=== PATIENT | female | born 1980 | race Asian ===

== ENCOUNTER → 2016-07-31 | Outpatient (CLI) | payer OTHER ==
[~2016-07-31] MED LIST: PREN1TAB29
[2016-07-31 16:48] LABS: BASO % 0.3 %; BASO ABS # 0.02 K/uL (0-0.2); COMPLETE YES; EOS % 1.3 %; HEMATOCRIT 35.4 % (37-47); IG% 0.1 %; LYMPH % 23.6 %; LYMPH ABS # 1.64 K/uL (1.2-3.4); MEAN CELL VOLUME 94.7 fL (80-100); MEAN CORPUSCULAR HEMOGLOBIN 31.6 pg (25-34); MEAN CORPUSCULAR HGB CONC 33.3 g/dl (32-36); MONO % 6.9 %; NEUT % 67.8 %; PLATELET COUNT 250 K/uL (130-400); RED BLOOD COUNT 3.74 M/uL (4.2-5.4); WHITE BLOOD COUNT 6.95 K/uL (4.8-10.8)
== END | disposition home or self-care (01) ==
LOC: C.LAB1850 15:27
PROVIDERS: ATTEND Obstetrics & Gynecology
DX: O09.529 Supervision of elderly multigravida, unspecified trimester (principal); Z3A.00 Weeks of gestation of pregnancy not specified

== ENCOUNTER → 2016-07-31 | Outpatient (CLI) | payer OTHER ==
[2016-08-01 12:47] LABS: URINE APPEARANCE CLEAR (CLEAR); URINE BILIRUBIN NEG (NEG); URINE COLOR YELLOW; URINE EPITHELIAL CELL AUTO 20-30 /lpf (0-5); URINE NITRITE NEG (NEG); URINE SPECIFIC GRAVITY 1.015 (1.000-1.030); UROBILINOGEN NEG (NEG)
[2016-08-01 12:48] LABS: MANUAL MICROSCOPIC REQUIRED? NO; REVIEW REQ? NO
[2016-08-03 15:28] LABS: CHLAMYDIA TRACH RNA*** NOT DETECTED (NOT DETECTED); GC (NEIS GONORRHOEAE)RNA** NOT DETECTED (NOT DETECTED)
== END | disposition home or self-care (01) ==
LOC: C.LABSPEC 17:15
PROVIDERS: ATTEND Obstetrics & Gynecology
DX: O09.529 Supervision of elderly multigravida, unspecified trimester (principal); Z3A.00 Weeks of gestation of pregnancy not specified

== ENCOUNTER → 2016-09-02 | Outpatient (CLI) | payer OTHER ==
[2016-09-02 18:05] LABS: GTGD 50 Grams
== END | disposition home or self-care (01) ==
LOC: C.LAB1850 14:09
PROVIDERS: ATTEND Obstetrics & Gynecology
DX: O09.529 Supervision of elderly multigravida, unspecified trimester (principal); Z3A.00 Weeks of gestation of pregnancy not specified

== ENCOUNTER → 2016-11-26 | Outpatient (CLI) | payer OTHER ==
[2016-11-26 16:39] LABS: HEMATOCRIT 32.1 % (37-47)
[2016-11-26 18:20] LABS: GTGD 50 Grams
[2016-11-26 18:22] LABS: URINE APPEARANCE CLEAR (CLEAR); URINE BILIRUBIN NEG (NEG); URINE COLOR YELLOW; URINE NITRITE NEG (NEG); URINE SPECIFIC GRAVITY 1.015 (1.000-1.030); UROBILINOGEN NEG (NEG)
[2016-11-26 18:24] LABS: MANUAL MICROSCOPIC REQUIRED? NO; REVIEW REQ? NO
== END | disposition home or self-care (01) ==
LOC: C.LAB1850 15:12
PROVIDERS: ATTEND Obstetrics & Gynecology
DX: O09.523 Supervision of elderly multigravida, third trimester (principal); Z3A.00 Weeks of gestation of pregnancy not specified

== ENCOUNTER → 2016-12-17 | Outpatient (CLI) | payer OTHER | END | disposition home or self-care (01) | LOC: C.LAB1850 09:39 | PROVIDERS: ATTEND Obstetrics & Gynecology | DX: O28.9 Unspecified abnormal findings on antenatal screening of mother (principal) ==

== ENCOUNTER → 2017-01-24 | Outpatient (CLI) | payer OTHER | END | disposition home or self-care (01) | LOC: C.LABSPEC 15:42 | PROVIDERS: ATTEND Obstetrics & Gynecology | DX: O09.523 Supervision of elderly multigravida, third trimester (principal); Z3A.00 Weeks of gestation of pregnancy not specified ==

== ENCOUNTER 2017-02-04 01:08 | Inpatient (IN) | payer OTHER ==
[~2017-02-04] VITALS: Ht 157.5 cm; Wt 60.0 kg
[2017-02-04] MEDS ORDERED: LACTATED RINGER'S 1000ML 1,000 ML IV PRN (02:50)
[2017-02-04] MEDS ORDERED: LACTATED RINGER'S 1000ML 1,000 ML IV SCH ×2 (02:50→09:54)
[2017-02-04 03:17] LABS: HEMATOCRIT 32.3 % (37-47); MEAN CELL VOLUME 96.4 fL (80-100); MEAN CORPUSCULAR HEMOGLOBIN 33.4 pg (25-34); MEAN CORPUSCULAR HGB CONC 34.7 g/dl (32-36); MEAN PLATELET VOLUME 10.7 fL (7.4-10.4); PLATELET COUNT 205 K/uL (130-400); RED BLOOD COUNT 3.35 M/uL (4.2-5.4); WHITE BLOOD COUNT 8.13 K/uL (4.8-10.8)
[2017-02-04] MEDS ORDERED: LACTATED RINGER'S 1000ML 500 ML IV PRN (04:10)
[2017-02-04] MEDS ORDERED: OXYTOCIN 30 UNITS/500ML NSS IV PRN ×2 (04:15→10:00)
[2017-02-04] MEDS ORDERED: PATIENT'S ALLERGY INFO NEEDS ENTERED SCH (04:30)
[2017-02-04] MEDS ORDERED: PREN1TAB29 (04:46)
[2017-02-04 04:51] VITALS: Ht 157.5 cm; Wt 60.0 kg
[2017-02-04] MEDS ORDERED: OXYCODONE/ACETAMINOPHEN 5-325 TAB PO PRN (10:00)
[2017-02-04] MEDS ORDERED: LANOLIN OINT EXT PRN ×2 (10:00)
[2017-02-04] MEDS ORDERED: BENZOCAINE 20% AER SPR 82.5 GM CAN EXT PRN (10:00)
[2017-02-04] MEDS ORDERED: IBUPROFEN 600 MG TAB PO PRN (10:00)
[2017-02-04] MEDS ORDERED: HYDROCORTISONE ACETATE 25 MG SUPP PR PRN (10:00)
[2017-02-04] MEDS ORDERED: ACETAMINOPHEN 325 MG TAB PO PRN (10:00)
[2017-02-04] MEDS ORDERED: DIPHTHERIA/TETANUS/PERTUSSIS 0.5 ML SYR/VIAL IM. ONE (10:00)
[2017-02-04] MEDS ORDERED: SUPERCREAM 0.870 % 15GM JAR EXT PRN (10:00)
--- NOTE | 2017-02-04 10:10 | DELIVERY SUMMARY ---
DATE OF OPERATION: 02/04/2017 PREOPERATIVE DIAGNOSES: 1. Torres intrauterine at 36 and 4. 2. Group B strep negative. POSTOPERATIVE DIAGNOSES: 1. Torres intrauterine at 36 and 4. 2. Group B strep negative. PROCEDURE: Spontaneous vaginal delivery and repair of second-degree laceration. SURGEON: Wendy Valles MD. ARTIFICIAL BREEDING TECHNICIAN: None. EBL: 350. COMPLICATIONS: None. DISPOSITION: Stable in labor and delivery. DESCRIPTION OF PROCEDURE: Ms. Sparrow is 36-year-old G2, P1 who was admitted by my partner Dr. Shanks. She was managed with Pitocin for augmentation. The patient did very natural child at the time I assumed care of her in the morning of February 04. The patient was 3 cm dilated and declining anesthesia. I was then called at about 9:15 with reports from the nurse that the patient had become significantly more painful and requesting an exam. At that point, she was found to be completely dilated and +2 station with involuntary pushing. She was prepped for delivery and over the next few pushes, she delivered the head of her infant in a JEANIE position followed by both shoulders and the reminder of the was delivered with no further difficulty. The cord was doubly clamped and cut and the cord blood was collected. The placenta then delivered spontaneously and was intact with a 3-vessel cord. There was noted to be a small second-degree laceration of the perineum. With the patient's permission, 1% plain lidocaine was infiltrated to this area and then the area was repaired using a 2-0 Vicryl suture. At the completion of repair, the fundus was firm, lochia was minimal and mother and were both in good condition having tolerated delivery well. I attest to the content of the Intraoperative Record and any orders documented therein. Any exception s are noted below.
[2017-02-04 16:45] VITALS: BP 99/61; PULSE 55; TEMP 36.9; O2SAT 97
[2017-02-04 20:00] VITALS: BP 99/56; PULSE 75; TEMP 36.3
[2017-02-04] MEDS: DOCUSATE SODIUM 100 MG CAP PO SCH (20:08)
[2017-02-05 00:30] VITALS: BP 94/66; PULSE 55; TEMP 36.5
[2017-02-05 04:30] VITALS: BP 97/64; PULSE 62; TEMP 36.8
--- NOTE | 2017-02-05 06:08 | OB/GYN Progress Note ---
FOUNDRY MANAGER Progress Note Date of Service Feb 05, 2017. Subjective conversation w/ patient, physical exam, chart review, lab review Ambulation: ambulating normally Voiding: no voiding problems Diet Tolerance: Regular Diet Lochia: Small Feeding Type: Breast Feeding Pain: mild pain Review of Systems Constitutional: No fever, No chills Respiratory: No shortness of breath Cardiac: No chest pain Abdomen: No nausea, No vomiting Female : No dysuria Objective Vital Signs Date Time Temp Pulse Resp B/P (MAP) Pulse Ox O2 Delivery O2 Flow Rate FiO2 02/05/17 04:30 36.8 62 18 97/64 (75) Room Air 02/05/17 00:30 Room Air 02/05/17 00:30 36.5 55 18 94/66 (75) Room Air 02/04/17 20:00 36.3 75 18 99/56 (70) Room Air 02/04/17 16:45 Room Air 02/04/17 16:45 36.9 55 18 99/61 (74) 97 Room Air Physical Exam General Appearance: NO APPARENT DISTRESS Respiratory/Chest: lungs clear, normal breath sounds Cardiovascular: regular rate, rhythm Abdomen: normal bowel sounds, non tender, soft Fundus: Firm, Relation to Umbilicus (1 FB below) Extremities: non-tender, no pedal edema Laboratory Results Last 24 Hours Test 02/05/17 04:44 Assessment and Plan Day Number: 1 Continue Routine Care: A/P: This is a 36 y/o female, , s/p [normal vaginal delivery] day 1. She is ambulating and clinically stable. Plan: - Vitals signs are reviewed and WNL (Tmax 36.9) - Last Hgb is 11.2 - Blood type B+, GBS neg, Rubella Immune - Routine care - Encourage ambulation, monitor and control pain with medication as needed, continue with regular diet as tolerated and monitor lochia - Stool softeners and sitz bath recommended - Encourage breast feeding and educate about breast feeding Resident Physician Supervision Note: I interviewed and examined the patient. Discussed with Dr. Falcon and agree with findings and plan as documented in the note. Any exceptions or clarifications are listed here: [None] Documented By: Wendy Valles Resident Involvement: Resident Care Provided Care Provided: OB Delivery
--- NOTE | 2017-02-05 07:11 | Medical Student: [facility] ---
Med Student LICENSED LIFE AND HEALTH AGENT Progress Nt Date of Service Feb 05, 2017. Subjective conversation w/ patient, physical exam, chart review, lab review, review of studies, review of inpatient medication list Ambulation: limited ambulation (to bathroom and back, has not attempted hallways) Voiding: no voiding problems Passing Gas: Yes Diet Tolerance: Regular Diet Lochia: Small Feeding Type: Breast Feeding Pain: 1-2 Notes: 1-210 abdominal cramping while , educated patient this is a normal response Review of Systems Constitutional: No fever, No chills Respiratory: No cough, No shortness of breath Cardiac: No chest pain, No edema Abdomen: No nausea, No vomiting Female : No dysuria Objective Vital Signs Date Time Temp Pulse Resp B/P (MAP) Pulse Ox O2 Delivery O2 Flow Rate FiO2 02/05/17 04:30 36.8 62 18 97/64 (75) Room Air 02/05/17 00:30 Room Air 02/05/17 00:30 36.5 55 18 94/66 (75) Room Air 02/04/17 20:00 36.3 75 18 99/56 (70) Room Air 02/04/17 16:45 Room Air 02/04/17 16:45 36.9 55 18 99/61 (74) 97 Room Air Physical Exam General Appearance: WELL-APPEARING, WD/WN, NO APPARENT DISTRESS Respiratory/Chest: lungs clear, normal breath sounds Cardiovascular: regular rate, rhythm, no edema, no murmur Abdomen: non tender, soft Fundus: Firm, Non-Tender, Relation to Umbilicus (1 finger breadth below umbilicus) Extremities: non-tender, no pedal edema, no calf tenderness Blood Type: B positive Rubella: immune GBS: negative Afebrile Laboratory Results Test 02/04/17 03:08 02/04/17 05:42 02/05/17 06:29 White Blood Count 8.13 Red Blood Count 3.35 Hemoglobin 11.2 11.4 Hematocrit 32.3 33.0 Mean Corpuscular Volume 96.4 Mean Corpuscular Hemoglobin 33.4 Mean Corpuscular Hemoglobin Concent 34.7 RDW Standard Deviation 47.0 RDW Coefficient of Variation 13.5 Platelet Count 205 Mean Platelet Volume 10.7 POC Glucose 86 Last 24 Hours Test 02/05/17 06:29 Medications Current Inpatient Medications Medications (Trade) Dose Ordered Sig/Jolie Route Start Time Stop Time Status Last Admin Dose Admin Lactated Ringer's 1,000 ml @ 125 mls/hr Q8H IV 02/04/17 02:50 02/06/17 02:49 02/04/17 05:33 125 MLS/HR Lactated Ringer's 1,000 ml @ 999 mls/hr Q1H1M PRN IV 02/04/17 02:50 03/06/17 02:49 Oxytocin (Pitocin IV) 30 units UD PRN IV 02/04/17 04:15 03/06/17 04:14 02/04/17 05:33 30 UNITS Lactated Ringer's 500 ml @ 999 mls/hr Q31M PRN IV 02/04/17 04:10 03/06/17 04:09 Lactated Ringer's 1,000 ml @ 125 mls/hr Q8H IV 02/04/17 09:54 03/06/17 09:53 Oxytocin (Pitocin IV) 30 units UD PRN IV 02/04/17 10:00 03/06/17 09:59 Benzocaine (Dermoplast Aero Spr) 1 appln PRN PRN EXT 02/04/17 10:00 03/06/17 09:59 02/04/17 16:53 1 APPLN Cocaine HCl (Supercream 0.870% Cr) BID PRN EXT 02/04/17 10:00 02/18/17 09:59 Hydrocortisone Acetate (Anusol Hc Supp) 25 mg BID PRN [place] 02/04/17 10:00 03/06/17 09:59 Lanolin (Lanolin Oint) PRN PRN EXT 02/04/17 10:00 03/06/17 09:59 Prenat Multivit/ [place]/Iron/Folic Ac ( Vitamin Tab) 1 tab DAILY PO 02/05/17 08:00 03/07/17 07:59 Ibuprofen (Motrin Tab) 600 mg Q4H PRN PO 02/04/17 10:00 03/06/17 09:59 Acetaminophen (Tylenol Tab) 650 mg Q6H PRN PO 02/04/17 10:00 03/06/17 09:59 Oxycodone/ Acetaminophen (Percocet 5-325mg Tab) 1 tab Q4H PRN PO 02/04/17 10:00 02/18/17 09:59 Docusate Sodium (coLACE CAP) 100 mg BID PO 02/04/17 20:00 03/06/17 19:59 02/04/17 20:08 100 MG Ferrous Sulfate (Feosol Tab) 325 mg DAILY PO 02/05/17 08:00 03/07/17 07:59 Assessment and Plan Post- Day Number: 1 Continue Routine Care: Assessment: Fercho Sparrow is a 36 year old F presenting PPD#1 following . She reports ambulating well and appears clinically stable. Vitals were reviewed: Her latest Blood pressure of 97/64 is normal compared to readings throughout her . The rest were WNL Predelivery Hgb was 11.2, Post Delivery is 11.4. Plan: Continue Routine care Continue to encourage ambulation and Recommend sitz bath for repaired 2nd degree perineal laceration. Monitor and control pain with medication PRN Check Blood Glucose at 6-12 weeks due to History of Diet Controlled Gestational Diabetes
[2017-02-05 07:35] VITALS: BP 98/64; PULSE 52; TEMP 36.7; O2SAT 98
[2017-02-05] MEDS ORDERED: PRENATAL VITAMIN TAB PO SCH (08:00)
[2017-02-05] MEDS ORDERED: FERROUS SULFATE 325 MG TAB PO SCH (08:00)
[2017-02-05] MEDS: DOCUSATE SODIUM 100 MG CAP PO SCH (08:02)
--- NOTE | 2017-02-05 09:33 | Discharge Instructions ---
Discharge Instructions Date of Service Feb 05, 2017. Admission Reason for Admission: LABOR Discharge Discharge Diagnosis / Problem: s/p vaginal delivery Discharge Goals Goal(s): Routine recovery after delivery Medications Continue Dispensed Medications: supercream, dermaplast, tucks, lansinoh Activity Recommendations Activity Limitations: per Instructions/Follow-up section . Instructions / Follow-Up Instructions / Follow-Up ACTIVITY RECOMMENDATIONS: * Gradual return to full activity over the next 2-3 weeks. * No lifting - nothing heavier than baby over the next 2-3 weeks. * Do not engage in vigorous exercise, sexual activity or sports until cleared by your physician. * Do not drive or operate any motorized equipment until cleared by your physician. * You may shower/bathe daily. MEDICATIONS: For discomfort or pain, you may use Acetaminophen (Tylenol), Ibuprofen (Advil), or Naproxen (Aleve) following the package directions. For constipation you may use Colace following the package directions. BREAST CARE: If you are not breast feeding: * Wear a supportive bra 24 hours a day for one to two weeks. * Avoid stimulating your breasts and nipples as much as possible during the first few weeks after delivery. * When taking a shower, have the warm water hit your back, not breasts. * When your breasts feel full, apply ice packs. Usually three to four times a day helps ease the discomfort. * Take a mild pain medication (Tylenol / Motrin) when you are uncomfortable. If breast feeding: * Use breast milk to lubricate nipples. Lansinoh cream may be used for sore nipples. You do not need to remove cream prior to breast feeding. If using a different brand of cream, check the label for directions regarding removal of cream prior to nursing. * Wear a supportive bra. * If having problems with breasts or breast feeding, call a residential solar consultant or your health care provider. EPISIOTOMY CARE: After delivery, if you have an episiotomy (stitches), the following steps will ease discomfort and aid healing. * For the first 24 hours after delivery, place ice packs next to your episiotomy to help reduce swelling. * After the first 24 hour-period, sitz baths, either portable or in the tub, are suggested. A shower with a shower arm sprayed over the episiotomy may be comforting. * [place] care should be done after each voiding and bowel movement. Squirt warm water from a plastic bottle over the perineum (region of the body between the anus and urinary opening) and pat dry. * Use Dermoplast to ease discomfort. Shake container. [place] directly over the episiotomy. Place a Tucks on a clean sanitary pad next to your episiotomy. SPECIAL CARE INSTRUCTIONS: When you are discharged from the hospital, it is important for you to follow the instructions listed below: * During the first week at home, you should be able to care for yourself and your baby. In addition, the usual light household activities are encouraged. * Limit your activities to the way you feel. Do not try to clean the house or move furniture. Be sensible. * If you actively engage in sports and have done so up until the time of your delivery, you may resume these activities as soon as you feel able. This may take up to one month or even longer. Use good judgment. * Continue to take your vitamins for at least six weeks after the of your baby. * Your diet need not be limited unless you were on a special diet before your delivery. Breast-feeding mothers need around 2500 calories per day and at least 64-80 ounces of fluid per day (8 to 10 glasses). * You should eat foods from the four major food groups. Crash diets or fad diets are to be avoided. Eating lean meats, fresh fruits and vegetables, low-fat dairy products, high fiber foods and a regular exercise program, will help you get back to your pre- weight without putting your health at risk. * Constipation is sometimes a problem after delivery. Take a mild laxative as needed. If breast feeding, Milk of Magnesia is acceptable to use. You may use a suppository or Fleets enema if no episiotomy. * A daily shower or tub bath is suggested. Be sure to thoroughly and gently dry the perineum. * A bloody vaginal discharge will usually continue until around four weeks post . A small amount of bleeding may continue for as long as six weeks. Vaginal discharge changes from the bright red bleeding after delivery to pink then brownish and finally yellowish-pink before becoming white and disappearing. * Bleeding may increase with activity. Your first period may come in 4-8 weeks. If you are breast feeding, your period may be delayed even longer. * [place] (sex) can begin whenever both you and your partner feel comfortable and do not have any form of genital infection. It is recommended that you wait at least six weeks for internal and external healing to occur. If you have questions, please talk to your health care practitioner. A condom should be used to prevent infection and . * Foreplay, gentle intercourse and lubrication is very important the first several times to prevent pain. A water-based lubricant such as K-Y jelly or Astroglide may be used. * If you have RH negative blood and your baby is RH positive, you will receive RHOGAM by injection prior to discharge. The nurse will give you a card to keep with you that has the date and place that you received RHOGAM after delivery. * During your care, you had a Rubella screen done to check for the presence of rubella antibodies in your blood. If your test was negative, you will receive a Rubella vaccine prior to discharge. This vaccine may cause a fever, soreness at the injection site and flu-like symptoms. If these symptoms persist, notify your health care practitioner. is not advised for one month after a Rubella vaccine. * Verbalizes understanding of car seat law as reviewed with patient nursing. * Car Seat hand-out given and reviewed with patient by nursing. * Shaken baby information reviewed with patient by nursing. Call you doctor if: * Heavy bleeding (saturating several pads an hour) or passing clots the size of your fist. * A fever >101 degrees F (38.3 degrees C) on two occasions four hours apart and /or chills. * Unusual pain in the pelvic or vaginal areas. * "Baby Blues" lasting longer than two weeks. If you have any questions or concerns, call your health care practitioner at . FOLLOW UP VISIT: * Please call the office at to schedule a 6 week examination. It is important you keep this appointment. It is important for you to make arrangements for either yearly or twice yearly check-ups thereafter. Current Hospital Diet Patient's current hospital diet: Regular OB Diet Discharge Diet Recommended Diet: Regular Diet Pending Studies Studies pending at discharge: no Medical Emergencies . Who to Call and When: Medical Emergencies: If at any time you feel your situation is an emergency, please call 911 immediately. . Non-Emergent Contact Non-Emergency issues call your: Tack Coverer . . "Provider Documentation" section prepared by Cintia Lara. . VTE Core Measure Inpt VTE Proph given/why not?: Treatment not indicated
[2017-02-05 14:00] VITALS: BP_DIAS 64; PULSE 52; TEMP 36.7
== END 2017-02-05 14:00 | disposition home or self-care (01) | DRG 775 ==
LOC: C.OPB 01:08 → C.LD 01:08 → C.OPB 02:52 → C.LD 02:52 → C.OBG 15:48 → EDSTATUS 02-19 01:07
PROVIDERS: ADMIT Obstetrics & Gynecology; ATTEND Obstetrics & Gynecology
PROC: 10E0XZZ Delivery of Products of Conception, External Approach (ICD-10-PCS; principal; 2017-02-04)
PROC: 0KQM0ZZ Repair Perineum Muscle, Open Approach (ICD-10-PCS; principal; 2017-02-04)
DX: O24.420 Gestational diabetes mellitus in childbirth, diet controlled (principal); O09.523 Supervision of elderly multigravida, third trimester; O70.1 Second degree perineal laceration during delivery; Z3A.37 37 weeks gestation of pregnancy; Z37.0 Single live birth